=== PATIENT | female | born 2000 | race Caucasian/White ===

== ENCOUNTER 2022-04-20 17:15 | Emergency (ER) | payer OTHER, SELFPAY ==
[2022-04-20 17:22] VITALS: BP 122/74; PULSE 66; RESP 20; TEMP 36.7; O2SAT 98
--- NOTE | 2022-04-20 17:38 | ED.URI ---
HPI - URI/Sore Throat General Chief Complaint: Upper Respiratory Infection Stated Complaint: cough, stuffy nose, sore throat, congestion Time Seen by Provider: 04/20/22 17:39 Source: patient and RN notes reviewed Mode of arrival: ambulatory Limitations: no limitations History of Present Illness HPI Narrative: 22-year-old female presents concern for 4-day history of nasal drainage, sore throat, cough. Reports her fianc? has similar symptoms. She reports she has not taken any [id number] intervention for her symptoms. She denies fever, body aches, chills, sweats, nausea, vomiting, diarrhea. MD elicited complaint: cough and nasal congestion Related Data Home Medications Medication Instructions Recorded Confirmed etonogestrel 68 mg subdermal 1 implant subdermal ONCE 07/15/21 04/20/22 implant (Nexplanon) fluoxetine 20 mg capsule 20 mg PO DAILY 04/20/22 04/20/22 Allergies Allergy/AdvReac Type Severity Reaction Status Date / Time codeine Allergy Unknown severe Verified 04/20/22 17:34 itching prochlorperazine AdvReac Other Verified 04/20/22 17:38 [From Compazine] Review of Systems Review of Systems: CONSTITUTIONAL: Denies malaise, chills, sweats, or fever. EYES: Denies visual changes, redness, or discharge. ENT: Reports rhinorrhea, congestion, sore throat. Denies sinus pain, otalgia CARDIOVASCULAR: Denies chest pain, palpitations, or edema. RESPIRATORY: Reports cough. Denies dyspnea. GASTROINTESTINAL: Denies abdominal pain, nausea, vomiting, diarrhea SKIN: Denies rash or itching. MUSCULOSKELETAL: Denies myalgia. NEUROLOGIC: Denies headache. All systems reviewed & are unremarkable except as noted in HPI and below [facility] Past Medical History Medical History Hyperlipemia Insertion of Nexplanon insertion / removal 08/15/2019 Nexplanon insertion 09/14/2016 Surgical History Surgical History Hx of tonsillectomy Family History Family History Mother Hypertension Melanoma Hypercholesterolemia Grandparent Hypertension Hypercholesterolemia Other Hypertension Hypercholesterolemia Sibling Hypercholesterolemia Sibling Hypercholesterolemia Social History Social History (Updated 03/09/22 @ 09:02 by Rita Davis MA) Years smoked: 1 Smoking status: Current some day smoker Tobacco type: e-cigarettes/vaping Alcohol intake: current Alcohol use details: socially Substance use: never Substance use type: does not use Gender identity (if verbalized by the patient): Female Sexual Orientation (if Verbalized by the Patient): Straight or Heterosexual Comments At time of signature, agree with nursing past medical, surgical, social and family history. There is no relevant family history pertinent to the presenting complaint Exam Narrative: GENERAL: Well-appearing, well-nourished, and in no acute distress. HEAD: Normocephalic EYES: PERRLA, conjunctivae clear ENT: Nares clear, turbinates edematous and erythematous, clear discharge. Mucous membranes moist. TM pearly mckenna with dull light reflex bilaterally; no tragal tenderness. Oropharynx not erythematous without lesions. Tonsils not enlarged and without exudate, no drooling, no hoarseness, no trismus, uvula midline. NECK: Supple. No lymphadenopathy CHEST: Clear to auscultation, breath sounds equal. No wheezing, rhonchi, rales, or stridor. No respiratory distress, speaks in full sentences. HEART: Regular rate and rhythm. No murmur heard. SKIN: Warm, dry, no rash. NEURO: Alert and oriented x3. PSYCH: Normal mood and affect Course Course Emergency Course: Patient is aware of diagnosis, understands and agrees to treatment plan. Anticipatory guidance given. Patient agrees to follow-up as directed and is aware of reasons to seek care at the emergency department. Portions of thi
== END 2022-04-20 17:55 | disposition home or self-care (01) ==
PROVIDERS: Emergency Provider Nurse Practitioner
DX: J06.9 Acute upper respiratory infection, unspecified (principal); F17.290 Nicotine dependence, other tobacco product, uncomplicated; E78.5 Hyperlipidemia, unspecified
CPT/HCPCS: 99213; G0463

== ENCOUNTER 2024-03-16 12:43 | Outpatient (CLI) | payer OTHER, SELFPAY ==
--- NOTE | ~2024-03-16 | US_ITS ---
EXAMINATION: US pelvic complete w TV DATE: 03/16/2024 13:43 INDICATION: Irregular menstruation TECHNIQUE: Multiple transabdominal and endovaginal sonographic images of the pelvis were obtained. COMPARISON: None. FINDINGS: The uterus measures 7.0 x 2.8 x 2.4 cm. The endometrial complex measures 4 mm in thickness. The righ t ovary measures 3.7 x 2.2 x 1.7 cm. The left ovary measures 3.9 x 2.1 x 1.9 cm. After flow identifie d at both ovaries on color Doppler. There are few Jade anechoic hypoechoic cysts at the peripher y of the bilateral ovaries. There is no free fluid in the pelvis. IMPRESSION: 1. Multiple subcentimeter cysts at the periphery of both ovaries raising possibility of polycystic ov dedra disease. Normal uterus. Reviewed, dictated and finalized at location B. IMPRESSION: 1. Multiple subcentimeter cysts at the periphery of both ovaries raising possib ility of polycystic ovarian disease. Normal uterus.
== END 2024-03-16 12:44 | disposition home or self-care (01) ==
PROVIDERS: Visit Provider Obstetrics & Gynecology
DX: N92.6 Irregular menstruation, unspecified (principal); N83.201 Unspecified ovarian cyst, right side; N83.202 Unspecified ovarian cyst, left side
CPT/HCPCS: 76830; 76856